=== PATIENT | male | born 1965 | race Caucasian/White ===

== ENCOUNTER 2020-09-11 09:21 | Emergency (ER) | payer MEDICARE ==
[2020-09-11] MEDS ORDERED: Nitroglycerin 2% Ointment 1 INCH/1 GM Packet ONE (09:46)
[2020-09-11] MEDS ORDERED: Furosemide 40 MG/4 ML VIAL ONE (09:46)
[2020-09-11 12:26] LABS: HBSAg Index 0.22 S/CO (0-0.99); Hep B Surf Ag Non-Reactive S/CO (NonReactive)
[2020-09-11 12:55] LABS: SARS-CoV-2 NAA Rapid Test Not Detected (NotDetected)
--- NOTE | 2020-09-11 19:29 | CON ---
DATE OF CONSULTATION: 09/11/2020 CONSULTING PHYSICIAN: Fabio Arellano MD REASON FOR CONSULTATION: End-stage renal disease evaluation and care. REASON FOR ADMISSION: Shortness of breath. HISTORY OF PRESENT ILLNESS: This is a 55-year-old male, who was traveling from [facility] and got short of breath. He is a dialysis patient, gets dialysis Friday, Friday, and Friday and he was going for dialysis, but over the weekend, he had increased fluid intake and got short of breath at [place] and was found to be hypoxic at the ER there and was transferred over here for emergent dialysis. The patient was seen at the ER and was short of breath and was on BiPAP therapy and Nephrology consulted for maintenance hemodialysis. The patient had a chest pain. No nausea or vomiting. PAST MEDICAL HISTORY: Positive for neck pain, back pain, end-stage renal disease, hypertension, and obesity. PAST SURGICAL HISTORY: Dialysis access placement. HOME MEDICATIONS: Reviewed. ALLERGIES: NO KNOWN DRUG ALLERGIES. SOCIAL HISTORY: No smoking, alcohol, or illicit drug abuse. FAMILY HISTORY: No history of kidney disease. REVIEW OF SYSTEMS: CONSTITUTIONAL: Negative for weight loss or gain, ability to conduct usual activities. SKIN: Negative for rash, itching. EYES: Negative for double vision, pain. ENT/MOUTH: Negative for nose bleeding, neck stiffness, pain, tenderness. CARDIOVASCULAR: Negative for palpitations, dyspnea on exertion, orthopnea. RESPIRATORY: Negative for shortness of breath, wheezing, cough, hemoptysis, fever or night sweats. GASTROINTESTINAL: Negative for poor appetite, abdominal pain, heartburn, nausea, vomiting, constipation, or diarrhea. GENITOURINARY: Negative for urgency, frequency, dysuria, nocturia. MUSCULOSKELETAL: Negative for pain, swelling. NEUROLOGIC/PSYCHIATRIC: Negative for anxiety, depression. ALLERGY/IMMUNOLOGIC: Negative for skin rash, bleeding tendency. PHYSICAL EXAMINATION: GENERAL: This is a well-built male, in mild distress. VITAL SIGNS: Temperature 96.5, pulse 134, respiratory rate 15, and blood pressure 233/112 on arrival. HEENT: Atraumatic, normocephalic. NECK: Supple. CV: S1 and S2. Rate and rhythm are regular. RESPIRATORY: Clear. MUSCULOSKELETAL: No tenderness. No edema. DERMATOLOGIC: No skin rash. NEUROLOGIC: Alert and awake. PSYCHIATRIC: Mood and affect normal. LABORATORY DATA: Hemoglobin 11.2. Potassium 5.6, BUN is 97, and creatinine is 15.2. ASSESSMENT AND PLAN: 1. End-stage renal disease. Plan to have dialysis emergently. 2. Hyperkalemia. 3. Fluid overload. 4. Acute hypoxic respiratory failure, on BiPAP therapy plan to remove fluid with dialysis 5. Anemia of chronic disease 6. H/o hypertension. Prognosis is guarded, but plan is to have dialysis emergently. Dialysis nurse notified and will be having dialysis today. Thank you for the consult. Job ID: [id number] MTDD
--- NOTE | 2020-09-30 16:13 | EKG ---
Test Reason : Blood Pressure : / mmHG Vent. Rate : 087 BPM Atrial Rate : 087 BPM P-R Int : 180 ms QRS Dur : 094 ms QT Int : 406 ms P-R-T Axes : 073 -05 067 degrees QTc Int : 488 ms Normal sinus rhythm Prolonged QT Abnormal ECG Confirmed by CALE HUNTER DO ([id number]), assistant film editor ALMA LAURENT ([id number]) on 09/30/2020 4:13:01 PM Referred By: Confirmed By:CALE HUNTER DO
== END 2020-09-11 22:16 | disposition home or self-care (01) ==
LOC: ERS 09:21
DX: I12.0 Hypertensive chronic kidney disease with stage 5 chronic kidney disease or end stage renal disease (principal); N18.6 End stage renal disease; E87.70 Fluid overload, unspecified; E66.9 Obesity, unspecified; Z79.899 Other long term (current) drug therapy
CPT/HCPCS: 0240U; 87340; 93005; 94660; 99285; 36415; 90935; G0257; J1940